=== PATIENT | female | born 1965 | race Hispanic/Latino ===

== ENCOUNTER → 2022-06-11 | Day surgery (SDC) | payer MEDICARE ==
[~2022-06-11] MED LIST: ALBUTEROL SULF8.5 GM INH; BUPROPION XL150 MG PO; CYMBALTA30 MG PO; FENTANYL CITRATE/PF 100MCG/2 ML INJ ONE; FISH OIL300 MG PO; GABAPENTIN300 MG PO; IRON325 M1 PO; LEVOTHYROXINE75 MCG PO; LIDOCAINE HCL 2% LOCAL INJ 5 ML SDV VIAL INJ ONE; METOCLOPRAMIDE HCL 10 MG/2ML VIAL ONE; MIDAZOLAM HCL 2 MG/2 ML VIAL ONE; OMEPRAZOLE40 MG PO; PANTOPRAZOLE SO40 MG PO; PRAVASTATIN PO; PROPOFOL IV EMULSION 10 MG/ML 20 ML VIAL ONE; SIMVASTATIN40 MG PO; ULTRAM 50MG50 MG PO; ZYRTEC10 M3 PO
[2022-06-11 12:43] VITALS: BP 124/86
== END | disposition home or self-care (01) ==
LOC: OR 06:53
PROVIDERS: ATTEND Internal Medicine Gastroenterology
DX: K29.50 Unspecified chronic gastritis without bleeding (principal); B96.81 Helicobacter pylori [H. pylori] as the cause of diseases classified elsewhere; K20.90 Esophagitis, unspecified without bleeding; K21.9 Gastro-esophageal reflux disease without esophagitis; K59.09 Other constipation; Z71.3 Dietary counseling and surveillance; E03.9 Hypothyroidism, unspecified; J45.909 Unspecified asthma, uncomplicated; E78.5 Hyperlipidemia, unspecified; F17.210 Nicotine dependence, cigarettes, uncomplicated; Z71.6 Tobacco abuse counseling; Z01.810 Encounter for preprocedural cardiovascular examination; Z01.812 Encounter for preprocedural laboratory examination; Z20.822 Contact with and (suspected) exposure to COVID-19; Z79.899 Other long term (current) drug therapy; Z68.41 Body mass index [BMI] 40.0-44.9, adult; Z85.42 Personal history of malignant neoplasm of other parts of uterus
CPT/HCPCS: 0223U; 36415; 43239; 93005; J2001; J2250; J2765; J3010

== ENCOUNTER → 2024-11-15 | Day surgery (SDC) | payer MEDICARE, OTHER ==
[~2024-11-15] MED LIST changes: -FENTANYL CITRATE/PF 100MCG/2 ML INJ ONE; -LIDOCAINE HCL 2% LOCAL INJ 5 ML SDV VIAL INJ ONE; +LIPITOR20 MG PO; +LISINOPRIL5 MG PO; -METOCLOPRAMIDE HCL 10 MG/2ML VIAL ONE; -MIDAZOLAM HCL 2 MG/2 ML VIAL ONE; -PROPOFOL IV EMULSION 10 MG/ML 20 ML VIAL ONE
[2024-11-15] MEDS: LACTATED RINGER'S 1,000 ML ONE (10:34)
[2024-11-15 13:34] VITALS: TEMP 97.1
[2024-11-15] MEDS: HYDROCODONE/APAP 7.5MG-325MG 1 EA TAB ONE (15:00)
[2024-11-15 15:10] VITALS: BP 154/87; PULSE 54; RESP 16; O2SAT 96
== END | disposition home or self-care (01) ==
LOC: OR 10:02
PROVIDERS: ATTEND Podiatrist Foot & Ankle Surgery
DX: M25.371 Other instability, right ankle (principal); S93.411A Sprain of calcaneofibular ligament of right ankle, initial encounter; S93.431A Sprain of tibiofibular ligament of right ankle, initial encounter; M25.471 Effusion, right ankle; E78.5 Hyperlipidemia, unspecified; J45.909 Unspecified asthma, uncomplicated; E03.9 Hypothyroidism, unspecified; E66.01 Morbid (severe) obesity due to excess calories; F41.9 Anxiety disorder, unspecified; X58.XXXA Exposure to other specified factors, initial encounter; Z88.8 Allergy status to other drugs, medicaments and biological substances; Z01.810 Encounter for preprocedural cardiovascular examination; Z79.899 Other long term (current) drug therapy; Z87.891 Personal history of nicotine dependence
CPT/HCPCS: 27696; 76000; 88304; 93005; C1713; J7121

== ENCOUNTER 2025-02-01 09:25 | Outpatient (RCR) | payer MEDICARE, OTHER | END 2025-02-05 | LOC: PT 09:25 | PROVIDERS: ATTEND Podiatrist Foot & Ankle Surgery | DX: Z47.89 Encounter for other orthopedic aftercare (principal) ==

== ENCOUNTER 2025-02-06 07:26 | Outpatient (RCR) | payer MEDICARE, OTHER | END 2025-03-07 | LOC: PT 07:26 | PROVIDERS: ATTEND Podiatrist Foot & Ankle Surgery | DX: Z47.89 Encounter for other orthopedic aftercare (principal); M25.471 Effusion, right ankle ==